=== PATIENT | female | born 1965 | race Caucasian/White ===

== ENCOUNTER 2017-07-16 12:36 | Emergency (ER) | payer OTHER ==
[~2017-07-16] VITALS: Ht 157.5 cm; Wt 66.4 kg
[~2017-07-16 12:36] MED LIST: ACYC800 PO; ALPR.25 PO; ALPR.5 PO; ALPR1 PO; AMOX500 PO; ARIP10 PO; ARIP15 PO; ARIP20 PO; Abilify2 MG; Amoxicillin500 MG PO; BENZ100A PO; CIPR500 PO; CRUTCH4 USE; CYCL10 PO; Cyclobenzaprine5 MG PO; DIVA500EC PO; DIVA500ER PO; HYDACE5 PO; HYDPAM50 PO; IBUP800 PO; LAMO100 PO; LAMO25 PO; LITH300C PO; LITH300ER PO; LORA.5 PO; LORA1 PO; Lithium Carbon600 MG PO; METPHE10 PO; METPRE4DP PO; Mucinex600 MG PO; NAPR500 PO; NAPR550 PO; NEOPOLHCSU RIGHTEAR; Naprosyn500 MG PO; OXYACE5T PO; PHENA200 PO; Prednisone20 MG PO; Pseudoephedrine30 MG PO; RXHYDACE PO; SULTRIDS PO; Ultram50 MG PO; Vistaril25 MG PO
[2017-07-16] MEDS ORDERED: CRUTCH4 XX (13:08)
== END 2017-07-16 13:15 | disposition home or self-care (01) ==
LOC: ER 12:36
DX: S90.32XA Contusion of left foot, initial encounter (principal); F31.9 Bipolar disorder, unspecified; F17.210 Nicotine dependence, cigarettes, uncomplicated; Z79.899 Other long term (current) drug therapy; X58.XXXA Exposure to other specified factors, initial encounter
CPT/HCPCS: 99282

== ENCOUNTER 2017-09-06 13:38 | Emergency (ER) | payer OTHER ==
[~2017-09-06] VITALS: Ht 157.5 cm; Wt 69.4 kg
[~2017-09-06 13:38] MED LIST changes: -Abilify2 MG; +CRUTCH4 XX
== END 2017-09-06 16:34 | disposition home or self-care (01) ==
LOC: ER 13:38
DX: S90.32XA Contusion of left foot, initial encounter (principal); Z23 Encounter for immunization; F31.9 Bipolar disorder, unspecified; F20.9 Schizophrenia, unspecified; F17.210 Nicotine dependence, cigarettes, uncomplicated; Z79.899 Other long term (current) drug therapy; X58.XXXA Exposure to other specified factors, initial encounter
CPT/HCPCS: 73590; 73630; 90714; 96372; 99284

== ENCOUNTER 2017-09-08 11:39 | Emergency (ER) | payer OTHER ==
[~2017-09-08] VITALS: Ht 157.5 cm; Wt 69.4 kg
[2017-09-08] MEDS ORDERED: Keflex500 MG PO (12:18)
[2017-09-08] MEDS ORDERED: Bactrim Ds Tab1 EACH PO (12:18)
[2017-09-08] MEDS ORDERED: Ultram50 MG PO (12:18)
[2017-09-09] MEDS ORDERED: Bactrim Ds Tab1 EACH PO (19:23)
[2017-09-09] MEDS ORDERED: Keflex500 MG PO (19:24)
== END 2017-09-08 12:26 | disposition home or self-care (01) ==
LOC: ER 11:39
DX: L03.115 Cellulitis of right lower limb (principal); F20.9 Schizophrenia, unspecified; F17.210 Nicotine dependence, cigarettes, uncomplicated
CPT/HCPCS: 87070; 87075; 87077; 87147; 87186; 87205; 96372; 99283; J1885

== ENCOUNTER 2017-09-09 18:06 | Emergency (ER) | payer OTHER ==
[~2017-09-09] VITALS: Ht 157.5 cm; Wt 69.4 kg
[~2017-09-09 18:06] MED LIST changes: +Bactrim Ds Tab1 EACH PO; +Keflex500 MG PO
[2017-09-09] MEDS ORDERED: Bactrim Ds Tab1 EACH PO (19:23)
[2017-09-09] MEDS ORDERED: Keflex500 MG PO (19:24)
== END 2017-09-09 19:41 | disposition home or self-care (01) ==
LOC: ER 18:06
DX: S91.302D Unspecified open wound, left foot, subsequent encounter (principal); B95.8 Unspecified staphylococcus as the cause of diseases classified elsewhere; F31.9 Bipolar disorder, unspecified; F20.9 Schizophrenia, unspecified; F17.210 Nicotine dependence, cigarettes, uncomplicated; Z79.899 Other long term (current) drug therapy

== ENCOUNTER 2018-05-04 17:34 | Emergency (ER) | payer OTHER ==
[~2018-05-04] VITALS: Ht 157.5 cm; Wt 76.2 kg
[~2018-05-04 17:34] MED LIST changes: +Percocet 5-3251 EACH PO
== END 2018-05-04 18:55 | disposition home or self-care (01) ==
LOC: ER 17:34
DX: S83.91XA Sprain of unspecified site of right knee, initial encounter (principal); W01.0XXA Fall on same level from slipping, tripping and stumbling without subsequent striking against object, initial encounter; Z91.018 Allergy to other foods; Z79.899 Other long term (current) drug therapy; F31.9 Bipolar disorder, unspecified; F20.9 Schizophrenia, unspecified; F43.10 Post-traumatic stress disorder, unspecified; F17.210 Nicotine dependence, cigarettes, uncomplicated
CPT/HCPCS: 29505; 73564; 99283-25

== ENCOUNTER 2018-09-23 23:27 | Emergency (ER) | payer OTHER ==
[~2018-09-23] VITALS: Ht 157.5 cm; Wt 79.4 kg
== END 2018-09-24 00:44 | disposition home or self-care (01) ==
LOC: ER 23:27
DX: M25.561 Pain in right knee (principal); M79.671 Pain in right foot; Z91.018 Allergy to other foods; Z79.899 Other long term (current) drug therapy; F31.9 Bipolar disorder, unspecified; F43.10 Post-traumatic stress disorder, unspecified; F20.9 Schizophrenia, unspecified; F17.210 Nicotine dependence, cigarettes, uncomplicated
CPT/HCPCS: 99283

== ENCOUNTER 2019-01-11 16:05 | Emergency (ER) | payer OTHER ==
[~2019-01-11] VITALS: Ht 157.5 cm; Wt 72.6 kg
[2019-01-11] MEDS ORDERED: Amoxicillin500 M1 PO (17:51)
[2019-01-11] MEDS ORDERED: KETO10 PO (17:51)
== END 2019-01-11 18:30 | disposition home or self-care (01) ==
LOC: ER 16:05
DX: K02.9 Dental caries, unspecified (principal); M25.562 Pain in left knee; F31.9 Bipolar disorder, unspecified; F43.10 Post-traumatic stress disorder, unspecified; F20.9 Schizophrenia, unspecified; F17.210 Nicotine dependence, cigarettes, uncomplicated; Z91.048 Other nonmedicinal substance allergy status; Z91.018 Allergy to other foods; Z79.899 Other long term (current) drug therapy
CPT/HCPCS: 99283

== ENCOUNTER 2019-03-22 18:54 | Emergency (ER) | payer OTHER ==
[~2019-03-22] VITALS: Ht 157.5 cm; Wt 75.8 kg
[~2019-03-22 18:54] MED LIST changes: +Amoxicillin500 M1 PO; +KETO10 PO
== END 2019-03-22 20:48 | disposition home or self-care (01) ==
LOC: ER 18:54
DX: S83.91XA Sprain of unspecified site of right knee, initial encounter (principal); F31.9 Bipolar disorder, unspecified; F20.9 Schizophrenia, unspecified; F17.210 Nicotine dependence, cigarettes, uncomplicated; W01.0XXA Fall on same level from slipping, tripping and stumbling without subsequent striking against object, initial encounter; Z91.048 Other nonmedicinal substance allergy status; Z91.018 Allergy to other foods; Z79.899 Other long term (current) drug therapy
CPT/HCPCS: 73590; 96372; 99283-25; J1885

== ENCOUNTER → 2020-11-16 | Outpatient (CLI) | payer OTHER | LOC: LAB SHORT 17:33 → LAB 17:33 | DX: M25.561 Pain in right knee (principal); Z91.018 Allergy to other foods; Z91.048 Other nonmedicinal substance allergy status | CPT/HCPCS: 87070; 87075; 87205 ==

== ENCOUNTER 2021-07-16 09:49 | Emergency (ER) | payer OTHER ==
[~2021-07-16] VITALS: Ht 157.5 cm; Wt 73.9 kg
[2021-07-16] MEDS ORDERED: IBUP800 PO (11:07)
[2021-07-16] MEDS ORDERED: MONDOXYNE NL100 MG PO (11:07)
== END 2021-07-16 11:17 | disposition home or self-care (01) ==
LOC: ER 09:49
DX: L03.011 Cellulitis of right finger (principal); F20.9 Schizophrenia, unspecified; F17.210 Nicotine dependence, cigarettes, uncomplicated; Z91.018 Allergy to other foods; Z91.048 Other nonmedicinal substance allergy status
CPT/HCPCS: A9270

== ENCOUNTER 2021-08-31 01:41 | Emergency (ER) | payer OTHER ==
[~2021-08-31] VITALS: Ht 157.5 cm; Wt 73.5 kg
[~2021-08-31 01:41] MED LIST changes: +MONDOXYNE NL100 MG PO
== END 2021-08-31 05:00 | disposition home or self-care (01) ==
LOC: ER 01:41
DX: S80.01XA Contusion of right knee, initial encounter (principal); F17.210 Nicotine dependence, cigarettes, uncomplicated; Z91.018 Allergy to other foods; Z91.09 Other allergy status, other than to drugs and biological substances; W19.XXXA Unspecified fall, initial encounter; Y93.41 Activity, dancing
CPT/HCPCS: 73562-RT; A9270

== ENCOUNTER 2021-09-01 19:53 | Emergency (ER) | payer OTHER ==
[~2021-09-01] VITALS: Ht 172.7 cm; Wt 86.2 kg
== END 2021-09-01 20:41 | disposition home or self-care (01) ==
LOC: ER 19:53
DX: M25.561 Pain in right knee (principal); G89.29 Other chronic pain; F20.9 Schizophrenia, unspecified; F31.9 Bipolar disorder, unspecified; F17.210 Nicotine dependence, cigarettes, uncomplicated; Z79.899 Other long term (current) drug therapy; Z91.018 Allergy to other foods; Z91.09 Other allergy status, other than to drugs and biological substances
CPT/HCPCS: A9270

== ENCOUNTER 2021-12-27 02:18 | Emergency (ER) | payer OTHER ==
[~2021-12-27] VITALS: Ht 157.5 cm; Wt 64.4 kg
== END 2021-12-27 02:49 | disposition home or self-care (01) ==
LOC: ER 02:18
DX: J06.9 Acute upper respiratory infection, unspecified (principal); R42 Dizziness and giddiness; T48.4X5A Adverse effect of expectorants, initial encounter; F17.210 Nicotine dependence, cigarettes, uncomplicated; Z91.018 Allergy to other foods; Z91.048 Other nonmedicinal substance allergy status; Z79.899 Other long term (current) drug therapy
CPT/HCPCS: 93005; 93010; A9270

== ENCOUNTER 2022-01-11 10:03 | Emergency (ER) | payer OTHER ==
[~2022-01-11] VITALS: Ht 162.6 cm; Wt 65.8 kg
== END 2022-01-11 11:21 | disposition left against medical advice (07) ==
LOC: ER 10:03
DX: R10.31 Right lower quadrant pain (principal); R10.32 Left lower quadrant pain; R30.0 Dysuria; Z53.21 Procedure and treatment not carried out due to patient leaving prior to being seen by health care provider
CPT/HCPCS: 99281

== ENCOUNTER 2022-01-13 20:52 | Emergency (ER) | payer OTHER ==
[~2022-01-13] VITALS: Ht 157.5 cm; Wt 65.8 kg
[2022-01-13 21:21] LABS: BASOPHILS ABSOLUTE AUTO 0.12 K/mm3 (0.00-0.23); BASOPHILS PERCENT AUTO 2 % (0-2); EOSINOPHILS ABSOLUTE AUTO 0.37 K/mm3 (0.00-0.68); EOSINOPHILS PERCENT AUTO 6 % (0-6); Hematocrit 40.8 % (33.0-51.0); Hemoglobin 13.4 g/dL (11.5-16.0); IMMATURE GRAN ABSOLUTE AUTO 0.01 K/mm3 (0.00-0.10); IMMATURE GRAN PERCENT AUTO 0 % (0-1); LYMPHOCYTES PERCENT AUTO 37 % (21-46); MONOCYTES ABSOLUTE AUTO 0.54 K/mm3 (0.16-1.47); MONOCYTES PERCENT AUTO 9 % (4-13); Mean Corpuscular HGB 29.4 pg (26.0-34.0); Mean Corpuscular HGB Conc 32.8 g/dL (31.5-36.5); Mean Corpuscular Volume 90 fL (80-100); Mean Platelet Volume 11.5 fL (9.1-12.4); NEUTROPHILS ABSOLUTE AUTO 2.92 K/mm3 (1.96-9.15); NEUTROPHILS PERCENT AUTO 47 % (41-73); Platelet Count 244 K/mm3 (150-400); RDW Coefficient Variation 13.1 % (11.7-14.2); RDW Standard Deviation 42.9 fL (35.1-46.3); Red Blood Cell Count 4.56 M/mm3 (3.80-5.20); White Blood Cell Count 6.26 K/mm3 (4.00-11.30)
[2022-01-13 21:37] LABS: Albumin, Blood 3.7 g/dL (3.4-5.0); Albumin/Globulin Ratio 1.2 (0.8-1.8); Bilirubin, Total 0.4 mg/dL (0.1-1.0); Bun/Creatinine Ratio 8.2 (12.0-20.0); Calcium, Blood 9.1 mg/dL (8.5-10.1); Creatinine, Blood 0.73 mg/dL (0.40-1.00); Globulin, Blood 3.2 g/dL (2.2-4.0); Potassium, Blood 3.8 mmol/L (3.5-5.5); Total Protein, Blood 6.9 g/dL (6.4-8.2)
[2022-01-14] MEDS ORDERED: SM TUSSIN DM PO (00:10)
[2022-01-14 01:06] LABS: Influenza A, PCR NEGATIVE (NEGATIVE); Influenza B, PCR NEGATIVE (NEGATIVE); Resp Syncytial Virus, PCR NEGATIVE (NEGATIVE); SARS-Cov-2 (COVID-19) PCR, MMC NEGATIVE (NEGATIVE)
== END 2022-01-14 00:26 | disposition home or self-care (01) ==
LOC: ER 20:52
PROVIDERS: Student in an Organized Health Care Education/Training Program
DX: R07.89 Other chest pain (principal); J40 Bronchitis, not specified as acute or chronic; F17.210 Nicotine dependence, cigarettes, uncomplicated; Z91.018 Allergy to other foods; Z91.09 Other allergy status, other than to drugs and biological substances
CPT/HCPCS: 0241U; 36415; 71046; 80053; 83690; 84484; 85025; 93005; 93010

== ENCOUNTER → 2022-02-01 | Outpatient (CLI) | payer OTHER ==
[~2022-02-01] MED LIST changes: +SM TUSSIN DM PO
[2022-02-03 10:11] LABS: HPV 16 Negative (Negative); HPV 18 Negative (Negative); HPV OTHER HR TYPES Negative (Negative)
== END ==
LOC: LAB 15:45 → LAB SHORT 15:45
PROVIDERS: Registered Nurse
DX: Z12.4 Encounter for screening for malignant neoplasm of cervix (principal)
CPT/HCPCS: 87624; G0123

== ENCOUNTER 2022-02-17 16:27 | Emergency (ER) | payer OTHER ==
[~2022-02-17] VITALS: Ht 157.5 cm; Wt 61.7 kg
[2022-02-17] MEDS ORDERED: VRAYLAR1.5 MG PO (16:49)
== END 2022-02-17 17:45 | disposition home or self-care (01) ==
LOC: ER 16:27
DX: T15.91XA Foreign body on external eye, part unspecified, right eye, initial encounter (principal); F17.210 Nicotine dependence, cigarettes, uncomplicated; Z91.018 Allergy to other foods; Z91.09 Other allergy status, other than to drugs and biological substances
CPT/HCPCS: A9270

== ENCOUNTER 2022-04-19 05:01 | Emergency (ER) | payer OTHER ==
[~2022-04-19] VITALS: Ht 160 cm; Wt 56.7 kg
[~2022-04-19 05:01] MED LIST changes: +VRAYLAR1.5 MG PO
[2022-04-19] MEDS ORDERED: DOC250 PO (07:31)
[2022-04-19] MEDS ORDERED: HYDR1TAB94 PO (07:31)
== END 2022-04-19 08:17 | disposition home or self-care (01) ==
LOC: ER 05:01
DX: M53.3 Sacrococcygeal disorders, not elsewhere classified (principal); Z91.018 Allergy to other foods; Z91.048 Other nonmedicinal substance allergy status; F43.10 Post-traumatic stress disorder, unspecified; F17.210 Nicotine dependence, cigarettes, uncomplicated
CPT/HCPCS: 72220; 96372; 99283-25; J1885

== ENCOUNTER → 2022-08-30 | Outpatient (CLI) | payer OTHER ==
[~2022-08-30] MED LIST changes: +DOC250 PO; +HYDR1TAB94 PO
[2022-08-31 10:36] LABS: Candida species (DNA Probe) Negative (NEGATIVE); G. vaginalis (DNA Probe) Negative (NEGATIVE); T. vaginalis (DNA Probe) Negative (NEGATIVE)
== END | disposition home or self-care (01) ==
LOC: LAB SHORT 17:25 → LAB 17:25
PROVIDERS: Registered Nurse
DX: B37.31 Acute candidiasis of vulva and vagina (principal)
CPT/HCPCS: 87480; 87510; 87660

== ENCOUNTER 2022-10-06 17:40 | Emergency (ER) | payer OTHER ==
[~2022-10-06] VITALS: Ht 157.5 cm; Wt 64.4 kg
[2022-10-06 18:05] VITALS: BP 109/62
== END 2022-10-06 19:27 | disposition home or self-care (01) ==
LOC: ER 17:40
DX: T63.441A Toxic effect of venom of bees, accidental (unintentional), initial encounter (principal); F17.200 Nicotine dependence, unspecified, uncomplicated; Z91.018 Allergy to other foods; Z91.048 Other nonmedicinal substance allergy status; Z88.8 Allergy status to other drugs, medicaments and biological substances
CPT/HCPCS: 99281

== ENCOUNTER → 2025-01-22 | Outpatient (CLI) | payer OTHER | END | disposition home or self-care (01) | LOC: LAB 17:53 → LAB SHORT 17:53 | PROVIDERS: Physician Assistant | DX: Z12.4 Encounter for screening for malignant neoplasm of cervix (principal) | CPT/HCPCS: 87624; G0145 ==